=== PATIENT | female | born 1985 | race Caucasian/White ===

== ENCOUNTER 2018-10-16 16:46 | Emergency (ER) | payer OTHER ==
[~2018-10-16] VITALS: Ht 157.5 cm; Wt 72.1 kg
[~2018-10-16 16:46] MED LIST: IBUP-974 PO; PRON INH
[2018-10-16 16:55] VITALS: BP 129/66
--- NOTE | 2018-10-16 16:55 | NUR ---
PATIENT PRESENTS TO ED WITH C/O SOB AND SEVERE HEADACHE WHEN SHE WAS SHOPPING TODAY, PT STATED HER VENTOLIN DID NOT WORK ANYMORE, HX OF ASTHMA. PATIENT STATES HEADACHE OF 10/10 AT THIS TIME; VSS; PATIENT POSITIONED FOR COMFORT; HOB ELEVATED; BEDRAILS UP X2; BED DOWN. ER MD MADE AWARE OF PT STATUS.
--- NOTE | 2018-10-16 16:55 | NUR ---
Patient being evaluated by physician at bedside.
[2018-10-16] MEDS ORDERED: DEXAMETHASONE 10 MG/ML VIAL IM ONE (17:00)
[2018-10-16] MEDS ORDERED: ALBUTEROL SULFATE/IPRATROPIU 3 ML SOL IH ONE ×2 (17:00→17:25)
[2018-10-16] MEDS ORDERED: hydrOXYzine HCL 25 MG TAB PO ONE (17:00)
--- NOTE | 2018-10-16 17:16 | NUR ---
BREATHING TREATMENT ADMINISTERED. TOLERATED TX WELL, NO ADVERSE SIDE EFFECTS. PATIENT STATES TO BE FEELING BETTER. NO ACUTE RESPIRATORY DISTRESS NOTED AT THIS TIME. WILL CONTINUE TO MONITOR.
--- NOTE | 2018-10-16 17:56 | NUR ---
BREATHING TREATMENT ADMINISTERED. TOLERATED WELL. WILL CONTINUE TO MONITOR.
--- NOTE | 2018-10-16 18:00 | NUR ---
PT IS RESTING IN BED, STILL C/O HEADACHE, NO S/S OF DISTRESS, VSS.
[2018-10-16 19:00] VITALS: BP 148/82
--- NOTE | 2018-10-16 19:00 | NUR ---
Patient discharged with v/s stable. Written and verbal after care instructions given and explained. Patient alert, oriented and verbalized understanding of instructions. Ambulatory with steady gait. All questions addressed prior to discharge. ID band removed. Patient advised to follow up with PMD. Rx of AZITHROMYCIN, PROMEHAZINE, PREDNISONE, ALBUTEROL, FIORICET given. Patient educated on indication of medication including possible reaction and side effects. Opportunity to ask questions provided and answered.
== END 2018-10-16 19:00 | disposition home or self-care (01) ==
LOC: MED 16:46
DX: J45.901 Unspecified asthma with (acute) exacerbation (principal); J06.9 Acute upper respiratory infection, unspecified; Z91.013 Allergy to seafood; Z79.899 Other long term (current) drug therapy
CPT/HCPCS: 81025; 94640; 99284; J1100; J7620

== ENCOUNTER 2019-04-13 11:18 | Emergency (ER) | payer OTHER ==
[~2019-04-13] VITALS: Ht 162.6 cm; Wt 78.6 kg
--- NOTE | 2019-04-13 11:37 | NUR ---
PT AMBULATED TO ER BED 04
[2019-04-13 11:40] VITALS: BP 138/73
[2019-04-13 11:41] VITALS: BP 138/73
--- NOTE | 2019-04-13 11:45 | NUR ---
33 Y FEMALE BIB SELF C/O BILATERAL EYE PAIN, ITCHING, CRUSTY DISCHARGE. PAIN 8/10 DESCRIBES "BURNING". +REDNESS AND TEARFUL IN BILATERAL EYES. STATES SHE FEELS MORE LETHARGIC. PT WAS IN [place] FOR FATHERS DAY AND SAW A PHYSICIAN AND WAS GIVEN ANTIHISTAMINE PILLS. VSS AT THIS TIME. PT [id number]. BED IS DOWN, LOCKED, BED RAIL X 1, ERMD TO SEE PT. PMH- ASTHMA RX-ALBUTEROL PRN
--- NOTE | 2019-04-13 11:50 | NUR ---
DR HUMPHREY AT BEDSIDE
--- NOTE | 2019-04-13 11:55 | NUR ---
Patient discharged. VS STABLE IN TRIAGE. PT APPROX IN ER FOR 20 MIN, NO VITALS FOR DISCHARGE. Written and verbal after care instructions given and explained. Patient alert, oriented and verbalized understanding of instructions. Ambulatory with steady gait. All questions addressed prior to discharge. ID band removed. Patient advised to follow up with PMD. Rx of CLARITIN, KETOTIFEN OPHTHALMIC SOLUTION given. Patient educated on indication of medication including possible reaction and side effects. Opportunity to ask questions provided and answered. PT GIVEN EXCUSE FOR WORK FOR TODAY.
== END 2019-04-13 11:55 | disposition home or self-care (01) ==
LOC: MED 11:18
DX: H10.9 Unspecified conjunctivitis (principal); R51 Headache
CPT/HCPCS: 99282